=== PATIENT | female | born 1985 | race Caucasian/White ===

== ENCOUNTER 2022-08-09 09:58 | Outpatient (REF) | payer OTHER, MEDICAID, SELFPAY ==
--- NOTE | ~2022-08-09 | US_ITS ---
EXAMINATION: US ABDOMEN COMPLETE CLINICAL INFORMATION: Abnormal findings of blood chemistry. Evaluate for JULES/liver lesion. COMPARISON: None TECHNIQUE: Real-time imaging of the abdominal viscera. FINDINGS: PANCREAS: Normal. ABDOMINAL AORTA: The proximal, mid, and distal segments are normal in caliber. INFERIOR VENA CAVA: Visualized portions are normal. LIVER: The liver is normal in size. The liver contour is normal. There is diffuse increased liver parenchymal echogenicity, consistent with infiltrative hepatocellular disease. No focal hepatic lesion. There is no intrahepatic biliary duct dilatation seen. GALLBLADDER: Minimal trace sludge within the gallbladder. The gallbladder is physiologically distended without evidence of stones, polyps, wall thickening or pericholecystic fluid. COMMON BILE DUCT: Normal in caliber measuring 0.2 cm in diameter. RIGHT KIDNEY: Normal. No hydronephrosis. No renal calculi or focal parenchymal lesions. The kidney measures 11.1 cm in maximum dimension. LEFT KIDNEY: Normal. No hydronephrosis. No renal calculi or focal parenchymal lesions. The kidney measures 10.1 cm in maximum dimension. SPLEEN: Normal. The spleen measures 11.5 cm in maximum dimension. FREE FLUID: None. US/US abdomen complete IMPRESSION: Increased hepatic echogenicity which can be seen in the setting of hepatic steatosis or underlying liver disease. Multiple trace sludge within the gallbladder without findings to suggest cholecystitis.
== END 2022-08-09 09:59 | disposition home or self-care (01) ==
LOC: HO.US 09:58
PROVIDERS: PCP Internal Medicine; Visit Provider Internal Medicine
DX: R79.89 Other specified abnormal findings of blood chemistry (principal)
CPT/HCPCS: 76700

== ENCOUNTER 2023-07-09 08:25 | Outpatient (REF) | payer OTHER, MEDICAID, SELFPAY ==
[2023-07-09 11:11] LABS: MANUAL DIFF FLAG NO
[2023-07-09 11:24] LABS: Basophils Percent Auto 0.5 % (0-2); Eosinophils Absolute Auto 0.1 X10*3/uL (0.0-0.4); Hematocrit 40.3 % (37.0-47.0); Imm Gran Abs Auto 0.02 X10*3/uL (0.00-0.03); Imm Gran Pct Auto 0.3 % (0.0-0.4); Lymphocytes Percent Auto 31.5 % (20-40); Mean Corpuscular HGB Conc 32.3 g/dl (31.0-35.0); Mean Corpuscular Hemoglobin 28.7 pg (27.0-33.0); Mean Platelet Volume 12.3 fL (9.4-12.3); Monocytes Absolute Auto 0.4 X10*3/uL (0.1-1.2); Monocytes Percent Auto 6.5 % (2-11); Neutrophils Absolute Auto 3.8 x10*3/uL (2.0-8.3); Neutrophils Percent Auto 59.2 % (45-73); Platelet Count 253 X10*3/uL (160-400); Red Blood Count 4.53 X10*6/uL (4.20-5.50); Red Cell Distribution Width 13.3 % (11.0-16.0); White Blood Count 6.5 X10*3/uL (4.8-10.8)
[2023-07-09 11:28] LABS: INTERNATIONAL NORM RATIO 0.9 (0.9-1.1)
[2023-07-09 11:29] LABS: Partial Thromboplastin Time 34.8 SEC (26.0-36.4)
[2023-07-09 12:03] LABS: Alanine Aminotransferase 140 U/L (0-31); Albumin Level 3.6 g/dL (3.5-5.0); Alkaline Phosphatase 191 U/L (39-117); Anion Gap 12 (12-20); Aspartate Amino Transferase 76 U/L (5-31); Bilirubin Total 0.3 mg/dL (0.0-1.0); Blood Urea Nitrogen 17 mg/dL (9-16); Calcium 8.7 mg/dL (8.4-10.2); Carbon Dioxide 21 mmol/L (22-29); Chloride 110 mmol/L (96-108); Estimated Glomerular Filt Rate > 60; Glucose Random 104 mg/dL (60-115); Potassium 3.9 mmol/L (3.3-5.1); Sodium 139 mmol/L (135-145); Total Protein 7.1 g/dL (6.5-8.0)
== END 2023-07-09 08:26 | disposition home or self-care (01) ==
LOC: HO.HHCL 08:25
PROVIDERS: Visit Provider Family Medicine
DX: Z01.818 Encounter for other preprocedural examination (principal)
CPT/HCPCS: 36415; 80053; 85025; 85610; 85730

== ENCOUNTER 2023-07-10 15:36 | Outpatient (REF) | payer OTHER, MEDICAID, SELFPAY ==
[2023-07-10 18:07] LABS: Alanine Aminotransferase 135 U/L (0-31); Alkaline Phosphatase 186 U/L (39-117); Aspartate Amino Transferase 48 U/L (5-31); Bilirubin Direct 0.1 mg/dL (0.0-0.5); Bilirubin Total 0.3 mg/dL (0.0-1.0); Total Protein 7.9 g/dL (6.5-8.0)
[2023-07-11 05:06] LABS: HBsAGNum1 0.36 S/CO (0.00-0.99); Hepatitis B Surface Antigen Negative (Negative)
[2023-07-11 05:08] LABS: Hepatitis A Antibody IgM 0.25 Index (0-0.79); ~Hepatitis A Antibody IgM Nonreactive (Nonreactive)
[2023-07-15 15:08] LABS: HCV Log PCR <1.18 NOT DETECTED Log IU/mL (NOT DETECTED); HepC Viral Load <15 NOT DETECTED IU/mL (NOT DETECTED)
[2023-07-16 10:44] LABS: Ceruloplasmin 28 mg/dL (18-53)
[2023-07-16 13:58] LABS: Mitochondrial Antibodies NEGATIVE (NEGATIVE)
== END 2023-07-10 15:37 | disposition home or self-care (01) ==
LOC: HO.HHCL 15:36
PROVIDERS: Visit Provider Family Medicine
DX: R74.01 Elevation of levels of liver transaminase levels (principal); R53.83 Other fatigue
CPT/HCPCS: 36415; 80076; 82390; 84443; 86255; 86256; 86709; 87340; 87522

== ENCOUNTER 2023-07-26 14:56 | Outpatient (REF) | payer OTHER, MEDICAID, SELFPAY ==
[2023-07-27 14:29] LABS: ~Hepatitis B Surface Antibody REACTIVE (Nonreactive)
[2023-07-27 14:40] LABS: Hepatitis A Antibody IgG Nonreactive (Nonreactive); ~Hepatitis A Antibody IgG 0.48 S/CO (0.00-0.99)
== END 2023-07-26 14:57 | disposition home or self-care (01) ==
LOC: HO.HHCL 14:56
PROVIDERS: Visit Provider Internal Medicine Geriatric Medicine
DX: K76.0 Fatty (change of) liver, not elsewhere classified (principal); R74.01 Elevation of levels of liver transaminase levels
CPT/HCPCS: 36415; 86706; 86708

== ENCOUNTER 2023-08-19 08:49 | Outpatient (REF) | payer OTHER, MEDICAID, SELFPAY ==
[2023-08-19 11:07] LABS: C Reactive Protein 1.52 mg/dL (< or = 0.50); Gamma Glutamyl Transpeptidase 108 U/L (7-33); Iron 47 mcg/dL (30-160); Percent Iron Saturation 18 % (15-50); Total Iron Binding Capacity 266 mcg/dL (228-428); Unsaturated Iron Binding 219 ug/dL
[2023-08-19 11:25] LABS: Ferritin 68 ng/mL (10-122)
[2023-08-21 12:53] LABS: Alpha Fetoprotein 1.6 ng/mL
[2023-08-21 17:03] LABS: Ceruloplasmin 32 mg/dL (18-53)
[2023-08-23 15:39] LABS: Smooth Muscle Antibody <20 U (<20)
== END 2023-08-19 08:50 | disposition home or self-care (01) ==
LOC: HO.LAB 08:49
PROVIDERS: PCP Internal Medicine; Visit Provider Nurse Practitioner Family
DX: R79.89 Other specified abnormal findings of blood chemistry (principal); D64.9 Anemia, unspecified; R74.8 Abnormal levels of other serum enzymes; K58.9 Irritable bowel syndrome, unspecified; R74.01 Elevation of levels of liver transaminase levels
CPT/HCPCS: 36415; 82105; 82390; 82728; 82977; 83540; 86015; 86140

== ENCOUNTER 2023-08-19 08:49 | Outpatient (AMB) | payer OTHER, MEDICAID, SELFPAY ==
--- NOTE | 2023-08-19 08:50 | A.OFFVIS_ITS ---
Intake Vital Signs 08/19/23 08:58 Height 5 ft 3 in Weight 153 lb BMI 27.1 BP 132/89 Blood Pressure Location Rt brachial Position Sitting Pulse 89 Intake Visit Reasons: Abnormal LFT'S Intake Note: Patient presents to in office visit today as a new patient for abnnormal LFT's. CC: Patient reports she had labs done as pre op for tummy tuck and LFT's were abnorma. She denies having any GI symptoms or concerns today. Allergies No Known Allergies Allergy (Verified 08/19/23 08:54) HPI Abnormal LFT'S HPI Details 37-year-old female with no significant p ast medical history is here today for initial consultation. Patient was getting ready to go for abdominop lasty and had basic blood work done. Patient was found to have high liver enzymes. 07/09/2023 her AST was 76 and ALT 140. Patient had normal platelets level. Patient denies any epigastric pain. Denies any abdominal pain or discomfort. No nausea or vomiting. Patient reports that she has been feeling well. No family history of liver disease. Patient reports that since last which she was unable to lose weight. It has been 18 months since she gave . Patient denies any GI concerning symptoms. She admits to be eating food that is high in fat, frequently eating fast food. [facility] Surgical History H/O section Social History Alcohol intake: current Alcohol intake frequency: holidays/special occasions only Patient Tobacco Use Status: Never used Tobacco Review of Systems Const Denies weight gain and Denies weight loss ENT Reports no additional complaints, Denies dysphagia and Denies odynophagia Card Reports no additional complaints Resp Reports no additional complaints GI Denies abdominal pain, Denies belching, Denies melena, Denies bloating, Denies change in bowel habits, Denies dysphagia, Denies excessive flatus, Denies dyspepsia, Denies heartburn, Denies diarrhea, Denies loose stools, Denies nausea, Denies odynophagia and Denies vomiting Reports no additional complaints Musc Reports no additional complaints Neuro Reports no additional complaints Psych Reports no additional complaints Endo Reports no additional complaints Physical Exam Vital Signs: Last Vital Signs Pulse 89 08/19/23 08:58 BP 132/89 08/19/23 08:58 BMI result Body Mass Index 27.1 Const General: healthy appearing, no acute distress and well developed Nutritional Appearance: well nourished Orientation/consciousness: patient oriented x3 HEENT Head: Yes normal to inspection, Yes normocephalic and Yes atraumatic Face and sinus: Yes normal facial exam Mouth: Normal oral and palatal mucosa present Throat: Yes posterior oropharynx normal, Yes tonsils normal and Yes uvula midline Eyes General: appearance normal, both eyes and all related structures Neck Neck: Yes normal visual inspection, Yes full ROM and Yes trachea midline Thyroid: Thyroid normal Resp Effort & Inspection: normal respiratory effort, able to speak in complete sentences, no tracheal deviation and symmetric chest movement Auscultation: clear to auscultation bilaterally Cardio Rate: regular rate Heart sounds: S1 normal heart sound present and S2 normal heart sound present GI Inspection: Yes normal to inspection and No distended Palpation (GI): Soft to palpation, not firm, nontender and No hepatosplenomegaly present Auscultation: normal bowel sounds General: Yes no CVA tenderness Back/Spine/Pelvis Back: no CVA tenderness Skin General skin exam: elasticity normal, turgor normal and dry skin Neuro General: patient oriented x3 Psych Appearance: grossly normal Mental Status: mental status grossly normal Speech and movement: Normal speech and movement present Results Reviewed Results Reviewed: ABDOMINAL ULTRASOUND 08/09/2023 FINDINGS: PANCREAS: Normal. ABDOMINAL AORTA: The proximal, mid, and distal segments are normal in caliber. INFERIOR VENA CAVA: Visualized portions are normal. LIVER: The liver is normal in size. The liver contour is normal. There is diffuse increased liver parenchymal echogenicity, consistent with infiltrative hepatocellular disease. No focal hepatic lesion. There is no intrahepatic biliary duct dilatation seen. GALLBLADDER: Minimal trace sludge within the gallbladder. The gallbladder is physiologically distended without evidence of stones, polyps, wall thickening or pericholecystic fluid. COMMON BILE DUCT: Normal in caliber measuring 0.2 cm in diameter. RIGHT KIDNEY: Normal. No hydronephrosis. No renal calculi or focal parenchymal lesions. The kidney measures 11.1 cm in maximum dimension. LEFT KIDNEY: Normal. No hydronephrosis. No renal calculi or focal parenchymal lesions. The kidney measures 10.1 cm in maximum dimension. SPLEEN: Normal. The spleen measures 11.5 cm in maximum dimension. FREE FLUID: None. US/US abdomen complete IMPRESSION: Increased hepatic echogenicity which can be seen in the setting of hepatic steatosis or underlying liver disease. Assessment & Plan Assessment & Plan (1) Transaminitis: Code(s): R74.01 - Elevation of levels of liver transaminase levels Plan: As mentioned above in HPI patient was diagnosed with transaminitis. Will work her up to rule out any autoimmune disorders, hemochromatosis. Abdominal ultrasound ordered by PCP and done on August 09 and showed hepatic steatosis. Most likely JULES. I will see patient in 3 months, sooner on as needed basis. Patient is agreeable to this plan and verbalizes understanding of instructions. She was given the opportunity to ask questions and all questions answered. Thank you for allowing me to participate in her care Orders: Orders Alpha Fetoprotein Today R79.89 - Other specified abnormal findings of blood chemistry Ceruloplasmin Today R79.89 - Other specified abnormal findings of blood chemistry IRON PROFILE Today D64.9 - Anemia, unspecified Ferritin Today R74.8 - Abnormal levels of other serum enzymes Gamma Glutamyl Transpeptidase Today R74.8 - Abnormal levels of other serum enzymes Smooth Muscle Antibody Today R79.89 - Other specified abnormal findings of blood chemistry C Reactive Protein Today K58.9 - Irritable bowel syndrome without diarrhea Coding Level of Care Code New Pt Level 3 (02336) Diagnoses Transaminitis R74.01 Time Spent (min) 40 Comment 30 minutes spent with patient and additional 10 minutes spent reviewing her records
[2023-08-19 08:58] VITALS: BP 132/89; PULSE 89; BMI 27.1
== END 2023-08-19 09:35 | disposition home or self-care (01) ==
PROVIDERS: PCP Internal Medicine; Visit Provider Nurse Practitioner Family
DX: R74.01 Elevation of levels of liver transaminase levels (principal)
CPT/HCPCS: 99203

== ENCOUNTER 2023-09-17 07:52 | Outpatient (REF) | payer OTHER, MEDICAID, SELFPAY ==
--- NOTE | ~2023-09-17 | US_ITS ---
EXAMINATION: US ABDOMEN COMPLETE CLINICAL INFORMATION: Elevated liver transaminase levels. COMPARISON: Ultrasound abdomen complete 08/09/2022. TECHNIQUE: Real-time imaging of the abdominal viscera. FINDINGS: PANCREAS: Normal. ABDOMINAL AORTA: The proximal, mid, and distal segments are normal in caliber. INFERIOR VENA CAVA: Visualized portions are normal. LIVER: Normal. The liver is normal in size. The liver contour is normal. Parenchymal echogenicity is normal. No focal hepatic lesion. There is no intrahepatic biliary duct dilatation seen. GALLBLADDER: There is slight sludge. The gallbladder is physiologically distended without evidence of stones, polyps, wall thickening or pericholecystic fluid. COMMON BILE DUCT: Normal in caliber measuring 0.2 cm in diameter. RIGHT KIDNEY: Normal. No hydronephrosis. No renal calculi or focal parenchymal lesions. The kidney measures 9.7 cm in maximum dimension. LEFT KIDNEY: Normal. No hydronephrosis. No renal calculi or focal parenchymal lesions. The kidney measures 8.7 cm in maximum dimension. SPLEEN: Normal. The spleen measures 11.3 cm in maximum dimension. FREE FLUID: None. US/US abdomen complete IMPRESSION: Unremarkable examination.
== END 2023-09-17 07:53 | disposition home or self-care (01) ==
LOC: HO.US 07:52
PROVIDERS: PCP Internal Medicine; Visit Provider Family Medicine
DX: R74.01 Elevation of levels of liver transaminase levels (principal)
CPT/HCPCS: 76700

== ENCOUNTER 2023-10-22 08:20 | Outpatient (REF) | payer OTHER, SELFPAY ==
[2023-10-22 11:07] LABS: MANUAL DIFF FLAG NO
[2023-10-22 11:23] LABS: Basophils Absolute Auto 0.1 X10*3/uL (0.0-0.2); Basophils Percent Auto 0.7 % (0-2); Eosinophils Absolute Auto 0.2 X10*3/uL (0.0-0.4); Eosinophils Percent Auto 2.2 % (0-4); Hematocrit 41.6 % (37.0-47.0); Hemoglobin 13.3 g/dl (12.0-16.0); Imm Gran Abs Auto 0.02 X10*3/uL (0.00-0.03); Imm Gran Pct Auto 0.3 % (0.0-0.4); Lymphocytes Absolute Auto 2.4 X10*3/uL (1.2-4.9); Lymphocytes Percent Auto 35.1 % (20-40); Mean Corpuscular Hemoglobin 28.3 pg (27.0-33.0); Mean Corpuscular Volume 88.5 fL (80.0-98.0); Mean Platelet Volume 11.9 fL (9.4-12.3); Monocytes Absolute Auto 0.4 X10*3/uL (0.1-1.2); Monocytes Percent Auto 5.6 % (2-11); Neutrophils Absolute Auto 3.8 x10*3/uL (2.0-8.3); Neutrophils Percent Auto 56.1 % (45-73); Platelet Count 253 X10*3/uL (160-400); Red Cell Distribution Width 13.1 % (11.0-16.0); White Blood Count 6.8 X10*3/uL (4.8-10.8)
[2023-10-22 11:32] LABS: INTERNATIONAL NORM RATIO 0.9 (0.9-1.1); Prothrombin Time 11.4 SEC (11.1-13.3)
[2023-10-22 11:35] LABS: Partial Thromboplastin Time 37.8 SEC (26.0-36.4)
[2023-10-22 11:53] LABS: Alanine Aminotransferase 68 U/L (0-31); Albumin Level 3.7 g/dL (3.5-5.0); Alkaline Phosphatase 141 U/L (39-117); Anion Gap 11 (12-20); Aspartate Amino Transferase 38 U/L (5-31); Bilirubin Total 0.4 mg/dL (0.0-1.0); Blood Urea Nitrogen 13 mg/dL (9-16); Calcium 8.5 mg/dL (8.4-10.2); Carbon Dioxide 25 mmol/L (22-29); Chloride 107 mmol/L (96-108); Estimated Glomerular Filt Rate > 60; Glucose Random 86 mg/dL (60-115); Sodium 139 mmol/L (135-145); Total Protein 7.2 g/dL (6.5-8.0)
== END 2023-10-22 08:21 | disposition home or self-care (01) ==
LOC: HO.HHCL 08:20
PROVIDERS: Visit Provider Internal Medicine Geriatric Medicine
DX: Z01.818 Encounter for other preprocedural examination (principal)
CPT/HCPCS: 36415; 80053; 85025; 85610; 85730

== ENCOUNTER 2023-11-14 13:25 | Outpatient (REF) | payer OTHER, SELFPAY ==
--- NOTE | ~2023-11-14 | XR_ITS ---
EXAMINATION: Bilateral hand. CLINICAL INDICATION: Injury. COMPARISON: None. TECHNIQUE: 3 views each hand. COMPARISON: None. FINDINGS: LEFT HAND: There is mild loss of PIP and DIP joint spaces without any bony erosive changes. The MCP joint space is preserved. No visible acute fracture, dislocation or subluxation seen. The soft tissues are normal. RIGHT HAND: There is an oblique fracture distal end mid phalanx third digit. No additional of fracture or dislocation seen. There is old avulsion fracture distal ulnar styloid process. The soft tissues are normal. XR/XR hand RT 2V IMPRESSION: Oblique fracture distal end mid phalanx third digit right hand. No additional fracture seen. Unremarkable left hand exam.
--- NOTE | ~2023-11-14 | XR_ITS ---
EXAMINATION: Bilateral hand. CLINICAL INDICATION: Injury. COMPARISON: None. TECHNIQUE: 3 views each hand. COMPARISON: None. FINDINGS: LEFT HAND: There is mild loss of PIP and DIP joint spaces without any bony erosive changes. The MCP joint space is preserved. No visible acute fracture, dislocation or subluxation seen. The soft tissues are normal. RIGHT HAND: There is an oblique fracture distal end mid phalanx third digit. No additional of fracture or dislocation seen. There is old avulsion fracture distal ulnar styloid process. The soft tissues are normal. XR/XR hand LT 2V IMPRESSION: Oblique fracture distal end mid phalanx third digit right hand. No additional fracture seen. Unremarkable left hand exam.
== END 2023-11-14 13:26 | disposition home or self-care (01) ==
LOC: HO.HHCX 13:25
PROVIDERS: Visit Provider Student in an Organized Health Care Education/Training Program
DX: S69.92XA Unspecified injury of left wrist, hand and finger(s), initial encounter (principal); S69.91XA Unspecified injury of right wrist, hand and finger(s), initial encounter
CPT/HCPCS: 73120

== ENCOUNTER 2023-11-22 09:48 | Outpatient (AMB) | payer OTHER, SELFPAY ==
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
[2023-11-22 10:00] VITALS: BMI 27.1
== END 2023-11-22 10:35 | disposition home or self-care (01) ==
PROVIDERS: PCP Internal Medicine; Visit Provider Physician Assistant
DX: S62.622A Displaced fracture of middle phalanx of right middle finger, initial encounter for closed fracture (principal)
CPT/HCPCS: 99204

== ENCOUNTER → 2023-11-22 09:48 | Outpatient (BNVA) | payer OTHER, SELFPAY | PROVIDERS: PCP Internal Medicine; Visit Provider Physician Assistant ==

== ENCOUNTER 2023-11-28 05:54 | Day surgery (SDC) | payer OTHER, MEDICAID, SELFPAY ==
--- NOTE | 2023-11-27 11:54 | HO.ANESPROP2 ---
Documented by User: Anne-Marie Soliman NP 11/27/23 11:54 HPI - Anesthesia Eval Consult details Narrative: 38yo F for Right Middle Finger Fx ORIF vs CRPP PMFSH Active Problems Active Problems: All Active Problems (Updated 11/22/23 @ 11:09 by Jose Manuel Giron PA-C) Fracture of phalanx of right middle finger (Acute) Past Medical History Medical History No known health problems Surgical History Surgical History H/O section Social History Social History Alcohol intake: current Alcohol intake frequency: holidays/special occasions only Patient Tobacco Use Status: Never used Tobacco Substance Use Frequency: Daily Are you DNR?: No Advance Directives: No Advance Directives Information Provided: Yes Nutrition Risks: No Nutritional Risk FDLMP: due any day Current occupational status: employed 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, 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 Meds Allergies Allergy/AdvReac Type Severity Reaction Status Date / Time No Known Allergies Allergy Verified 11/28/23 06:19 Home Medications Medication Instructions Recorded Confirmed Last Taken Type No Known Home Meds 08/19/23 11/28/23 Unknown History Assessment and Plan Assessment Anesthesia Assessment: Chart Reviewed Documented by User: Roma Olguin MD 11/28/23 07:34 HPI - Anesthesia Eval Consult details Narrative: , smokes pot daily several [id number] F for Right Middle Finger Fx ORIF vs CRPP PMFSH Past Medical History Medical History No known health problems Family History Family history of problems with anesthesia: No Surgical History Surgical History H/O section History of Problems with Anesthesia: No Social History Social History Alcohol intake: current Alcohol intake frequency: holidays/special occasions only Patient Tobacco Use Status: Never used Tobacco Substance Use Frequency: Daily Are you DNR?: No Advance Directives: No Advance Directives Information Provided: Yes Nutrition Risks: No Nutritional Risk FDLMP: due any day Current occupational status: employed 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 Discussed (daily multiple uses of pot) Final Anesthetic Review Family History of Problems with Anesthesia: No History of Problems with Anesthesia: No NPO: Yes ASA Class: II Final Preanesthetic Review: No Changes in Pt Med Stat, Meds/Allgs Chart Reviewed, Consent Obtained/Reviewed and Anes Risks/Benef Reviewed Patient Risk: Intermediate Procedure Risk: Low Anesthetic Plan Anesthetic Plan: GA Disposition: Standard PACU
[2023-11-28] VITALS (15 sets, daily range): BP systolic 115–154; BP diastolic 75–94; PULSE 66–88; RESP 16–18; TEMP 36.2–36.7; O2SAT 94–100; BMI 27.9
--- NOTE | ~2023-11-28 | FL_ITS ---
EXAMINATION: XR FLUOROSCOPY WITH IMAGES CLINICAL INFORMATION: Right middle finger ORIF. COMPARISON: Previous x-ray 11/14/2023 TECHNIQUE: Fluoroscopy Supervised By: Dr. Jillian Maldonado. Fluoroscopy Time: 69.4 seconds. Cumulative Dose: 1.4537 mGy. DAP: 0.0879 Gycm2. Images: 4. FINDINGS: Imaging is demonstrate 4 K wires or pins transfixing the fracture of the middle phalanx of the right third finger with improved alignment. FL/FL guidance in OR IMPRESSION: Fluoroscopic guidance for right third finger ORIF.
[2023-11-28 06:33] LABS: UPreg QC Valid YES; Urine Pregnancy NEGATIVE (NEGATIVE)
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
--- NOTE | 2023-11-28 09:48 | W.PM.OPN ---
Operative Note Operative Note Date of Service: 11/28/23 Narrative: Operative Note Narrative: Preop diagnosis: 1. Right middle finger middle phalanx fracture Postop diagnosis: Same Procedure: 1. Right middle finger middle phalanx fracture closed reduction percutaneous pinning Surgeon: Jillian Maldonado MD Anesthesia: General Anesthesia Findings: finger fracture Implants: 0.045 K-wires times 1, and 0.035 K-wires x3 Tourniquet time: None EBL: Minimal Specimen: None Drains: None Complications: None Disposition: Brought to the recovery room in stable condition Plan: Follow-up in 10-14 days for a wound check, postop radiographs and for placement in a short-arm finger spica cast or splint Anticipate K-wire removal in 4-5 weeks based on interval bony healing Educate the patient that full fracture healing anticipated in approximately 8-12 weeks. May need early OT hand therapy to work on range of motion Indications: The patient is 38 years old with woman with a right middle finger middle phalanx fracture with displacement . The risks and benefits of operative treatment, including but not limited to risk of damage to blood vessels, nerves, tendons, infection, recurrence, delayed or nonunion of fracture, persistent pain or numbness, incomplete resolution of preoperative symptoms, or need for further surgery were discussed with the patient and they wished to proceed with surgery. Procedure: Once consent was obtained patient was brought back to the operating suite and placed in the operating table in a supine position. . Perioperative antibiotics and general anesthesia was administered by the anesthesia team. A tourniquet was applied to the proximal aspect of the right upper extremity and the limb was prepped and draped in a standard surgical fashion. Tourniquet was not inflated during the case. The FluoroScan was used during the case to assist with our fracture reduction and placement of all implants. A closed reduction was performed on the patient's right middle finger middle phalanx fracture. I 1st attempted to place a 0.045 K-wire retrograde through the tip of the finger and then attempted to advanced it across the fracture site, however this caused displacement of the fracture, and the K-wire was removed. I again reduced the fracture and held it with the 2 point reduction clamp and then passed a single 0.045 K-wire retrograde through the through the distal ulnar aspect of the middle phalanx. This was then advanced retrograde and obliquely across the fracture site. Once satisfied with the position of this K-wire I then placed a 0.035 K-wire obliquely through the ulnar cortex across the fracture site into the radial base of the proximal phalanx. A a 2nd 0.035 K-wire was placed transversely from the radial cortex across the fracture site to the ulnar cortex of the middle phalanx, and a 3rd 0.035 K-wire was then passed obliquely from the radial cortex across the fracture site to the distal ulnar aspect of the middle phalanx. I was satisfied with our reduction and placement of all implants on fluoroscopic images. The clinical reduction was also satisfactory with no evidence of malrotation. The pins were bent cut short had pin caps applied. Final fluoroscopic images were obtained and saved. A digital block was performed using some 0.5% plain Marcaine for postop pain control. A Sterile dressing and short volar splint extending from the tips of the middle ring and small fingers to the forearm was applied. The patient appears to have tolerated the procedure well and with no complications. All digits were well vascularized at the conclusion of the case.
== END 2023-11-28 12:27 | disposition home or self-care (01) ==
PROVIDERS: Nurse Practitioner; PCP Internal Medicine; Visit Provider Orthopaedic Surgery
PROC: (CPT 26727; principal; 2023-11-28 07:30)
DX: S62.622A Displaced fracture of middle phalanx of right middle finger, initial encounter for closed fracture (principal); Y04.0XXA Assault by unarmed brawl or fight, initial encounter; Y93.89 Activity, other specified; Y92.9 Unspecified place or not applicable; Y99.8 Other external cause status
CPT/HCPCS: 26727; 81025; J0690; J1100; J1170; J2250; J2405; J2550; J2704; J2795; J3010

== ENCOUNTER → 2023-11-28 05:54 | Outpatient (BNV) | payer OTHER, SELFPAY | PROVIDERS: PCP Internal Medicine; Visit Provider Orthopaedic Surgery | DX: S62.622A Displaced fracture of middle phalanx of right middle finger, initial encounter for closed fracture (principal) | CPT/HCPCS: 26727 ==

== ENCOUNTER 2023-12-10 09:37 | Outpatient (REF) | payer OTHER, SELFPAY ==
--- NOTE | ~2023-12-10 | XR_ITS ---
EXAMINATION: XR HAND, RIGHT CLINICAL INFORMATION: Right hand pain COMPARISON: 11/14/2023 TECHNIQUE: PA, lateral, and oblique views of the right hand. FINDINGS: There has been interval fixation of displaced third middle phalangeal fracture. No lucencies about the 4 stabilizing K wires/pins. Fracture lines are less evident. Alignment is maintained.. Digit soft tissues are diffusely swollen. Remaining bony structures are intact. XR/XR hand RT min 3V IMPRESSION: Postoperative third digit following fixation of displaced middle phalangeal fractures.
== END 2023-12-10 09:38 | disposition home or self-care (01) ==
LOC: HO.HOSX 09:37
PROVIDERS: Visit Provider Orthopaedic Surgery
DX: S62.622D Displaced fracture of middle phalanx of right middle finger, subsequent encounter for fracture with routine healing (principal)
CPT/HCPCS: 73130

== ENCOUNTER 2023-12-10 13:19 | Outpatient (AMB) | payer OTHER, SELFPAY ==
--- NOTE | 2023-12-10 13:30 | MHC.OFFVIS ---
Intake Intake Visit Reasons: PO-Rt MF ORIF vs CRPP 11/28/23 Intake Note: Aleida 38 yr old female presents today for her PO visit for her Right Middle finger ORIF from 11/28/23. Dressing removed in office and xrays updated. Allergies No Known Allergies Allergy (Verified 12/10/23 13:41) HPI PO-Rt MF ORIF vs CRPP 11/28/23 HPI Details Aleida is a 38 year old right hand dominant woman who presents S/P right middle finger middle phalanx CRPP, DOS: 11/28/23, DOI: 11/13/23. She says she is doing well overall. She complains of a mild throbbing pain in her finger which she says developed today in clinic when her finger was un-wrapped. Otherwise she occasionally feels a burning pain in her finger, and denies any numbness or tingling. 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 She is currently out of work until 01/08/24. 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 Sutures removed and Steri-Strips applied Some swelling, which is improving Sensation is intact Cap refill is brisk Radiographs: 3 views of the right hand with attention to the middle finger were taken and viewed by me today in clinic. They show a middle finger middle phalanx fracture with satisfactory fracture alignment and position of all K-wires. Psych Appearance: grossly normal Affect: normal affect Attitude: cooperative Assessment & Plan Assessment & Plan (1) Fracture of phalanx of right middle finger: Code(s): S62.602A - Fracture of unspecified phalanx of right middle finger, initial encounter for closed fracture Qualifiers: Encounter type: initial encounter Fracture type: closed Phalanx: middle Fracture alignment: displaced Qualified Code(s): S62.622A - Displaced fracture of middle phalanx of right middle finger, initial encounter for closed fracture Plan Assessment & Plan: 1. Right middle finger middle phalanx fracture, S/P CRPP DOI: 11/13/23 DOS: 11/28/23 The patient appears to be doing well post-operatively I educated her about the post-operative course I explained the signs and symptoms of infection, if the patient develops any new or worsening erythema, drainage, pain, or warmth they should contact the clinic or attend the ED. She was placed in a finger spica cast, to be worn at least until her next appointment. I discussed activity modifications, she is to lift nothing heavier than a cellphone for the next 4 weeks She will perform gentle ROM exercises at home She should avoid any underwater activities at this time She will follow up in 2 weeks with radiographs, 3V attn R MF. I anticipate removal of at least the 3 small K-wires at that appointment depending on bony healing. I may allow her to work on finger range of motion with pin site care for the remaining K-wire if it is left in for an additional week or 2. I explained it will likely take 8-12 weeks post-operatively for full healing Scribed for Jillian Maldonado MD by Philip Ayala, certified medical transcriptionist, on 12/10/23 at 1:50 PM, EST. Orders: Orders XR hand RT min 3V Today M79.641 - Pain in right hand Coding Level of Care Code Global (80700) Diagnoses Closed displaced fracture of middle phalanx of right middle finger, initial encounter S62.622A Encounter type: initial encounter Fracture type: closed Phalanx: middle Fracture alignment: displaced
== END 2023-12-10 14:49 | disposition home or self-care (01) ==
PROVIDERS: PCP Internal Medicine; Visit Provider Orthopaedic Surgery
DX: S62.622A Displaced fracture of middle phalanx of right middle finger, initial encounter for closed fracture (principal)
CPT/HCPCS: 99024

== ENCOUNTER 2023-12-25 07:59 | Outpatient (AMB) | payer OTHER, SELFPAY ==
--- NOTE | 2023-12-25 08:16 | A.OFFVIS_ITS ---
Intake Vital Signs 12/25/23 08:19 Height 5 ft 3 in Weight 155 lb BMI 27.5 Handedness Right Intake Visit Reasons: PO-Rt MF ORIF vs CRPP 11/28/23-cast off Intake Note: Aleida 38 yr old female presents today for her PO visit for her Right Middle finger ORIF from 11/28/23. Cast removed and xrays updated in office. Patient reports that her finger feel very stiff. Natalia numbness and tingling. Allergies No Known Allergies Allergy (Verified 12/25/23 08:18) HPI PO-Rt MF ORIF vs CRPP 11/28/23-cast off HPI Details Aleida is a 38 year old right hand dominant woman who presents S/P right middle finger middle phalanx CRPP, DOS: 11/28/23, DOI: 11/13/23. She says she is doing well overall in regards to pain, but she feels her finger is very stiff . Otherwise she denies any numbness or tingling. 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 She is currently out of work until 01/08/24. She has several children at home, one of which is only 1 year old. 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 3 x 0.035mm K-wires removed today in clinic, which she tolerated well 1 x 0.045mm K-wire remains in place Minimal swelling, which is improved She has good active ROM at the MCP joints She has good ROM at all PIP joints except for the middle finger Her middle finger PIP joint moves ~0-30 degrees Sensation is intact Cap refill is brisk Radiographs: 3 views of the right hand with attention to the middle finger were taken and viewed by me today in clinic. They show a middle finger middle phalanx fracture with satisfactory fracture alignment, satisfactory position of all K-wires, and interval bony healing. Psych Appearance: grossly normal Affect: normal affect Attitude: cooperative Assessment & Plan Assessment & Plan (1) Fracture of phalanx of right middle finger: Code(s): S62.602A - Fracture of unspecified phalanx of right middle finger, initial encounter for closed fracture Qualifiers: Encounter type: initial encounter Fracture alignment: displaced Fracture type: closed Phalanx: middle Qualified Code(s): S62.622A - Displaced fracture of middle phalanx of right middle finger, initial encounter for closed fracture Plan Assessment & Plan: 1. Right middle finger middle phalanx fracture, S/P CRPP DOI: 11/13/23 DOS: 11/28/23 3X 0.035mm K-wires removed: 12/25/22 1x 0.045mm K-wire remains in place The patient appears to be doing well post-operatively I educated her about the post-operative course and about pin site care at home. She may start washing her hand including the pin site with soap and water in the shower sink but understands not to submerge it. She is also going to work on range of motion exercises, hopefully improving PIP range of motion before next visit. No splint was given, as I want her just to put on a dressing, and work on range of motion. She will follow up in 1 week for a ROM check and removal of the remaining K- wire. X-rays should be taken at this appointment, 3V attn R MF I explained it will likely take 8-12 weeks post-operatively for full healing Please note that greater than 30 minutes was spent with this patient going over the history, evaluating the patient and radiographs, formulating possible treatment options, discussing them with the patient, and documenting the visit. Scribed for Jillian Maldonado MD by Philip Ayala medical education specialist, on 12/25/23 at 8:30 AM, EST. Orders: Orders XR hand RT min 3V Today M79.641 - Pain in right hand Coding Level of Care Code Global (19619) Diagnoses Closed displaced fracture of middle phalanx of right middle finger, initial encounter S62.622A Encounter type: initial encounter Fracture alignment: displaced Fracture type: closed Phalanx: middle
[2023-12-25 08:19] VITALS: BMI 27.5
== END 2023-12-25 09:11 | disposition home or self-care (01) ==
PROVIDERS: PCP Internal Medicine; Visit Provider Orthopaedic Surgery
DX: S62.622A Displaced fracture of middle phalanx of right middle finger, initial encounter for closed fracture (principal)
CPT/HCPCS: 99024

== ENCOUNTER 2023-12-25 10:01 | Outpatient (REF) | payer OTHER, SELFPAY ==
--- NOTE | ~2023-12-25 | XR_ITS ---
EXAMINATION: XR HAND, RIGHT CLINICAL INFORMATION: Pain. COMPARISON: None available. TECHNIQUE: PA, lateral, and oblique views of the right hand. FINDINGS: Bony alignment and mineralization are normal. There is well-maintained alignment status-post ORIF of an oblique fracture of the right third middle phalanx, with 4 intact K wires. There is stable very mild displacement of fracture fragments, and no hardware failure or loosening is seen. There is mild adjacent soft tissue swelling, without gas or foreign body noted. The proximal and distal carpal rows are intact. There is no abnormal bone erosion. XR/XR hand RT min 3V IMPRESSION: There is stable alignment of an oblique, slightly displaced fracture of the right third middle phalanx, without hardware failure or loosening noted. There is no significant new callus formation.
== END 2023-12-25 10:02 | disposition home or self-care (01) ==
LOC: HO.HOSX 10:01
PROVIDERS: Visit Provider Orthopaedic Surgery
DX: S62.622D Displaced fracture of middle phalanx of right middle finger, subsequent encounter for fracture with routine healing (principal)
CPT/HCPCS: 73130

== ENCOUNTER 2023-12-31 15:02 | Outpatient (AMB) | payer OTHER, SELFPAY ==
--- NOTE | 2023-12-31 15:04 | MHC.OFFVIS ---
Intake Vital Signs 12/31/23 15:06 Height 5 ft 3 in Weight 155 lb BMI 27.5 Intake Visit Reasons: PO-Rt MF ORIF vs CRPP 11/28/23-pin removal Intake Note: Aleida 38 yr old female presents today for her PO visit for her Right Middle finger ORIF from 11/28/23 ROM and to have her last pin removed. Allergies No Known Allergies Allergy (Verified 12/31/23 15:05) HPI PO-Rt MF ORIF vs CRPP 11/28/23-pin removal HPI Details Aleida is a 38 year old right hand dominant woman who presents S/P right middle finger middle phalanx CRPP, DOS: 11/28/23, DOI: 11/13/23. She is here for K-wire removal She says she is doing well overall in regards to pain. She still has some stiffness, but has been working on it.. She denies any numbness or tingling. 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 She is currently out of work until 01/08/24. She has several children at home, one of which is only 1 year old. 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 1 x 0.045mm K-wire removed today in clinic, which she tolerated well Swelling resolved She has good active ROM at the MCP joints She could bring her middle fingertip actively down to the thenar mass, and back into full extension She could bring her other digits to a closed fist and back into full extension Sensation is intact Cap refill is brisk Radiographs: 3 views of the right hand with attention to the middle finger were taken and viewed by me today in clinic. They show a middle finger middle phalanx fracture with satisfactory fracture alignment, satisfactory position of single remaining K-wire, and evidence of interval bony healing. Psych Appearance: grossly normal Affect: normal affect Attitude: cooperative Assessment & Plan Assessment & Plan (1) Fracture of phalanx of right middle finger: Code(s): S62.602A - Fracture of unspecified phalanx of right middle finger, initial encounter for closed fracture Qualifiers: Encounter type: initial encounter Fracture alignment: displaced Fracture type: closed Phalanx: middle Qualified Code(s): S62.622A - Displaced fracture of middle phalanx of right middle finger, initial encounter for closed fracture Plan Assessment & Plan: 1. Right middle finger middle phalanx fracture, S/P CRPP DOI: 11/13/23 DOS: 11/28/23 3X 0.035mm K-wires removed: 12/25/22 1x 0.045mm K-wire removed: 12/31/23 The patient appears to be doing well post-operatively I educated her about the post-operative course and about pin site care at home. She may start washing her hand including the pin site with soap and water in the shower sink but understands not to submerge it until at least the weekend She will work on ROM exercises at home, with a focus on making a closed fist She is to limit or avoid any heavy or repetitive pinching or gripping activities for the next few weeks. I ordered OT hand therapy to work on ROM exercises No splint was given, as I want her just to put on a dressing, and work on range of motion. I explained it will likely take 8-12 weeks post-operatively for full healing She will follow up in 3 weeks or a ROM check, before she returns to work on 01/24/24. This can be done with a PA or with me Scribed for Jillian Maldonado MD by Philip Ayala, medical art therapist, on 12/31/23 at 3:25 PM, EST. Orders: Orders XR hand RT min 3V Today M79.641 - Pain in right hand OT Evaluation and Treatment Today S62.602A - Fracture of unspecified phalanx of right middle finger, initial encounter for closed fracture Coding Level of Care Code Global (86428) Diagnoses Closed displaced fracture of middle phalanx of right middle finger, initial encounter S62.622A Encounter type: initial encounter Fracture alignment: displaced Fracture type: closed Phalanx: middle
[2023-12-31 15:06] VITALS: BMI 27.5
== END 2023-12-31 15:45 | disposition home or self-care (01) ==
PROVIDERS: PCP Internal Medicine; Visit Provider Orthopaedic Surgery
DX: S62.622A Displaced fracture of middle phalanx of right middle finger, initial encounter for closed fracture (principal)
CPT/HCPCS: 99024

== ENCOUNTER 2023-12-31 15:02 | Outpatient (REF) | payer OTHER, SELFPAY ==
--- NOTE | ~2023-12-31 | XR_ITS ---
EXAMINATION: XR HAND, RIGHT CLINICAL INFORMATION: Pain. COMPARISON: Prior radiographs, most recently 12/25/2023. TECHNIQUE: PA, lateral, and oblique views of the right hand. FINDINGS: Bony alignment and mineralization are normal. There is stable alignment of a comminuted of fracture of the third middle phalanx. A single intact orthopedic fixator pin remains. There is no hardware failure or loosening. There is mild soft tissue swelling. No soft tissue gas or foreign body is seen. XR/XR hand RT min 3V IMPRESSION: There is stable alignment of a comminuted fracture of the third finger middle phalanx. No hardware failure or loosening is seen. There is no significant new callus formation.
== END 2023-12-31 15:03 | disposition home or self-care (01) ==
LOC: HO.HOSX 15:02
PROVIDERS: PCP Internal Medicine; Visit Provider Orthopaedic Surgery
DX: S62.622D Displaced fracture of middle phalanx of right middle finger, subsequent encounter for fracture with routine healing (principal)
CPT/HCPCS: 73130

== ENCOUNTER 2024-01-14 08:01 | Outpatient (RCR) | payer OTHER, MEDICAID, SELFPAY ==
--- NOTE | 2024-01-14 15:36 | MHC.OT.OLE ---
[address] [phone] F: [phone] Occupational Therapy Lymphedema Evaluation Patient Name: Aleida Yang Diagnosis: (R) 3rd digit phalanx fracture ORIF Date of Onset: 11/13/23 Attending Provider: Jillian Maldonado Prescribed Treatment: Follow Up Appointment: History of Current Condition: Patient is a 38 year old right handed female who sustained a fall at her daughters bus stop on 11/13/2023 (was reluctant to disclose further detail on how she fell) resulting in a (R) 3rd digit phalanx fracture ORIF (11/28/2023) she was referred to skilled OT by Jillian Maldonado MD for ROM of the finger. Significant Medical History: No known health problems Precautions/Contraindications: Patient Goals: To be able to move the finger better. 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 min (A) ADLs/ IADLs Boyfriend provides support for daily tasks Employment Status: (I) Leisure Activites/Hobbies: Driving: (I) Sleeping: Vision: Balance: Pain Assessment Pain Score: 3 Pain Scale Used: Numeric (0 - 10) Pain Location and Description: from DIP to PIP 0/10 at rest 3/10 during movement, 10/10 if it is bumped Aggravating Factors: Alleviating Factors: Skin and Soft Tissue Assessment Skin and Soft Tissue: Comments: Edema present on the DIP Nerve assessment Ulnar Nerve: Median Nerve: Radial Nerve: Comments: Sensory Assessment Temperature: WFL Light Touch: WFL Proprioception: WFL Vibration: WFL Comments: Monofilament Test= WFL Edema Assessment Upper Extremity: Lower Extremity: Comments: Dexterity Assessment Dexterity: Comments: Special Tests Comments: AROM (PROM) Strength Lower Extremity Hip Flexion: Knee Flexion: Knee Extension: Ankle Dorsiflexion: Ankle Plantarflexion: Ankle Eversion: Ankle Inversion: Comments: Cervical Flexion: Extension: Lateral Flexion: Rotation: Comments: Shoulder Flexion: Extension: Abduction: Internal Rotation: External Rotation: Comments: WFL Flexion: Extension: Abduction: Internal Rotation: External Rotation: Comments: WFL Elbow Flexion: Extension: Forearm Pronation: Forearm Supination: Comments: WFL Flexion: Extension: Forearm Pronation: Forearm Supination: Comments: WFL Wrist Flexion: Extension: Ulnar Deviation: Radial Deviation: Comments: WFL Flexion: Extension: Ulnar Deviation: Radial Deviation: Comments: WFL Thumb Thumb CMC Flexion: Thumb MCP Flexion: Thumb IP Flexion: Radial Abduction: Palmar Abduction: Opposition: Comments: WLF Digits Index MCP: PIP: DIP: Long MCP: 60*flexion, extension WFL PIP: 58* flexion, extension WFL DIP: 15* flexion Ring MCP: PIP: DIP: Small MCP: PIP: DIP: Comments: Difficulty with making a composite fist Gross Grasp: (R) Not tested due to injury Lateral Pinch: Two-Point Pinch: Three-Jaw Jarad: Comments: (L)sack cleaning hand strength= 44.6lbs Patient Education Primary Language: Latvian Paint Technician Required: No Current Knowledge: Teaching Method: Education Needs Identified on Evaluation: How did patient/family demonstrate learning? Barriers to Learning: Readiness for Learning: Who was educated? Comments: Plan of Care Assessment: STG Duration: 2 weeks Short Term Goals: Patient will report decreased pain of 1/10 Patient will increase (R) DIP flexion by 5* Patient will increase (R)PIP flexion by 5* Patient will demonstrate the ability to make a composite fist for performance during functional tasks LTG Duration: 4 weeks Intermediate Goals: Patient will have full ROM in (R) 3rd digit for (I) performance during self care tasks Patient will report 0/10 pain in (R) MF Patient will be (I) with HEP Patient will have improved Quick DASH score indicated by a decreased score of at lease 10 points Frequency and Duration: The patient will be seen 2x a week for 4 weeks Treatment Plan: Therapeutic Exercise Therapeutic Activity Home Exercise Program Patient Education Edema Control ADL Training Paraffin Fluidotherapy MHP Cold Packs Kinesiotaping Treatment Plan Comments: OT eval and treat Lymphedema Treatment Plan: Lymphedema Treatment Plan Comments: Electronically Signed By: ASHWINI Lopez/Artur, CLT Reviewed/agree with student documentation: Therapist: Please sign and return to therapist, thank you for your referral.
== END 2024-04-22 13:30 | disposition home or self-care (01) ==
LOC: HO.OT 08:01
PROVIDERS: PCP Internal Medicine; Visit Provider Orthopaedic Surgery
DX: S62.602A Fracture of unspecified phalanx of right middle finger, initial encounter for closed fracture (principal)
CPT/HCPCS: 97110; 97165

== ENCOUNTER 2024-01-24 08:03 | Outpatient (AMB) | payer OTHER, SELFPAY ==
--- NOTE | 2024-01-24 08:08 | A.OFFVIS_ITS ---
Intake Intake Visit Reasons: PO-Rt MF ORIF vs CRPP 11/28/23-ROM check Intake Note: Aleida is a 38 year old female who presents today for a ROM check s/p Rt MF ORIF vs CRPP 11/28/23 AR. Patient reports she went to OT for one session. She was able to obtain the exercises and she will be performing them at home. Allergies No Known Allergies Allergy (Verified 01/24/24 08:11) HPI PO-Rt MF ORIF vs CRPP 11/28/23-ROM check HPI Details 38-year-old female who [facility] a [facility]; 2 months status post right middle finger middle phalanx fracture closed reduction percutaneous pinning, which was performed on 11/28/[address] Maldonado. The patient reports she attend occupational therapy for one session. She states she was able to obtain the exercises and will work on them at home. 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 Significant stiffness of the DIP of the middle finger. full motion of the PIP and MCP. Sensation intact. Capillary relief. Assessment & Plan Assessment & Plan (1) Fracture of phalanx of right middle finger: Code(s): S62.602A - Fracture of unspecified phalanx of right middle finger, initial encounter for closed fracture Qualifiers: Encounter type: initial encounter Fracture alignment: displaced Fracture type: closed Phalanx: middle Qualified Code(s): S62.622A - Displaced fracture of middle phalanx of right middle finger, initial encounter for closed fracture Plan Ms. Yang is a 38-year-old female who presents in the office today for a ROM check; 2 months status post right middle finger middle phalanx fracture closed reduction percutaneous pinning, which was performed on 11/28/[address] Maldonado. The patient reports she attend occupational therapy for one session. She states she was able to obtain the exercises and will work on them at home. Patient reports she is not attending occupational therapy at this time due to the copay cost and she does not plan to attend any more sessions. She states she was given a handout with some exercises that she has not began to work on at home. She reports she will begin doing these on her own, but as of yet she has not been fully involved with working on the exercises. ROM continues to be a concern. Follow up will be in 4 weeks for a ROM check, or sooner if needed. Patient Instructions: Scribed by Tara Perez regional medical director, for Lucy Butts PA-C on 01/24/2024 at 8:13 am, EST. Coding Level of Care Code Global (57112) Diagnoses Closed displaced fracture of middle phalanx of right middle finger, initial encounter S62.622A Encounter type: initial encounter Fracture alignment: displaced Fracture type: closed Phalanx: middle
== END 2024-01-24 08:28 | disposition home or self-care (01) ==
PROVIDERS: PCP Internal Medicine; Visit Provider Physician Assistant
DX: S62.622A Displaced fracture of middle phalanx of right middle finger, initial encounter for closed fracture (principal)
CPT/HCPCS: 99024

== ENCOUNTER → 2024-01-24 08:03 | Outpatient (BNVA) | payer OTHER, SELFPAY | PROVIDERS: PCP Internal Medicine; Visit Provider Physician Assistant ==

== ENCOUNTER 2024-03-17 09:42 | Outpatient (AMB) | payer OTHER, SELFPAY ==
[2024-03-17 09:48] VITALS: BMI 27.5
--- NOTE | 2024-03-17 09:48 | MHC.OFFVIS ---
Vital Signs 03/17/24 09:48 Height 5 ft 3 in Weight 155 lb BMI 27.5 Handedness Right Intake Visit Reasons: ov-Rt MF ORIF vs CRPP 11/28/23-ROM check Intake Note: Aleida is a 38 year old right hand dominant female presents today for a ROM check s/p Right Middle finger CRPP 11/28/23. Patient reports she is doing well. She is able to make a fist but is unable to bend her 3rd digit at DIP. 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 Allergies No Known Allergies Allergy (Verified 03/17/24 09:57) HPI HPI ov-Rt MF ORIF vs CRPP 11/28/23-ROM check: Details: Aleida is a 38 year old right hand dominant woman who presents S/P right middle finger middle phalanx CRPP, DOS: 11/28/23, DOI: 11/13/23. She is here for a ROM check She says she is doing well overall and denies any pain. She has improved her ROM but still has trouble bending her middle finger DIP joint. 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 She has returned to work but says she needs an updated work note in order to return to administering injections. She has several children at home, one of which is only 1 year old. 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 She has good active ROM at the MCP joints She can make a fist and extend all her digits Full active flexion at the middle finger PIP joint She had ~45 degrees of active middle finger DIP joint flexion Good FDP tendon function Sensation is intact Cap refill is brisk Psych Appearance: grossly normal Affect: normal affect Attitude: cooperative Assessment & Plan Assessment & Plan (1) Fracture of phalanx of right middle finger: Code(s): S62.602A - Fracture of unspecified phalanx of right middle finger, initial encounter for closed fracture Category: Medical Qualifiers: Encounter type: initial encounter Fracture alignment: displaced Fracture type: closed Phalanx: middle Qualified Code(s): S62.622A - Displaced fracture of middle phalanx of right middle finger, initial encounter for closed fracture Plan Assessment & Plan: 1. Right middle finger middle phalanx fracture, S/P CRPP DOI: 11/13/23 DOS: 11/28/23 3X 0.035mm K-wires removed: 12/25/22 1x 0.045mm K-wire removed: 12/31/23 The patient appears to be doing well post-operatively She did not attend OT hand therapy and has been working on ROM exercises at home She will continue to work on these exercises at home She was given a note for work saying she can return to full duty, without restrictions She will follow up prn Scribed for Jillian Maldonado MD by Philip Ayala, bacteriologist medical, on 03/17/24 at 10:15 AM, EST.
== END 2024-03-17 10:15 | disposition home or self-care (01) ==
PROVIDERS: PCP Internal Medicine; Visit Provider Orthopaedic Surgery
DX: S62.622A Displaced fracture of middle phalanx of right middle finger, initial encounter for closed fracture (principal)
CPT/HCPCS: 99213

== ENCOUNTER → 2024-03-17 09:42 | Outpatient (BNVA) | payer OTHER, SELFPAY | PROVIDERS: PCP Internal Medicine; Visit Provider Orthopaedic Surgery ==